=== PATIENT | female | born 1975 | race Caucasian/White ===

== ENCOUNTER 2018-08-20 02:39 | Emergency (ER) | payer BC ==
[~2018-08-20] VITALS: Ht 157.5 cm; Wt 45.4 kg
[2018-08-20 02:50] VITALS: BP 114/68
--- NOTE | 2018-08-20 02:52 | NUR ---
ED Nurse Note: Patient walked in to ER c/o abdominal discomphort, constipation. Per patient she tryed to use bathroom and she was not able to pass stool. AAO x4, VSS at this time, skin is dry, warm to touch.
[2018-08-20] MEDS ORDERED: FLEET ENEMA133 ML RECTAL (03:06)
--- NOTE | 2018-08-20 03:07 | Emergency Room Report ---
History of Present Illness General Chief Complaint: Constipation Source: Patient Present Illness HPI This is a 42-year-old female with a history of Sjogren and thyroid problem. She presents with chief complaint of constipation and fecal impaction. Onset tonight. Last bowel movement was to 3 days ago. She has an urge to go around 9 PM but unable to get it out. Painful she try to defecate. Not on any pain medication. Never had this problem before. Has not tried anything for it. Allergies: Coded Allergies: No Known Allergies (Unverified , 08/20/18) Patient History Past Medical History: see triage record, old chart reviewed Past Surgical History: other Pertinent Family History: none Social History: Denies: smoking Last Menstrual Period: 07/22/18 Now: No Immunizations: other Reviewed Nursing Documentation: PMH: Agreed; PSxH: Agreed Nursing Documentation-PMH Past Medical History: No History, Except For Review of Systems Eye: Denies: eye pain, blurred vision ENT: Denies: ear pain, nose congestion, throat swelling Respiratory: Denies: cough, shortness of breath Cardiovascular: Denies: chest pain, palpitations Gastrointestinal: Denies: abdominal pain, diarrhea, nausea, vomiting Musculoskeletal: Denies: back pain, joint pain Skin: Denies: rash Neurological: Denies: headache, numbness Endocrine: Denies: increased thirst, increased urine Hematologic/Lymphatic: Denies: easy bruising All Other Systems: negative except mentioned in HPI Physical Exam Vital Signs Date Time Temp Pulse Resp B/P (MAP) Pulse Ox O2 Delivery O2 Flow Rate FiO2 08/20/18 02:40 97.9 92 16 114/68 (83) 97 Room Air vitals normal Sp02 EP Interpretation: reviewed, normal General Appearance: well appearing, no apparent distress, alert Head: normocephalic, atraumatic Eyes: bilateral eye PERRL, bilateral eye EOMI ENT: hearing grossly normal, normal pharynx Neck: full range of motion, supple, no meningismus Respiratory: chest non-tender, lungs clear, normal breath sounds Cardiovascular #1: regular rate, rhythm, no murmur Gastrointestinal: normal bowel sounds, non tender, no mass, no organomegaly, no bruit, non-distended Rectal: other - Large amount of hard stool. Musculoskeletal: back normal, gait/station normal, normal range of motion Neurologic: alert, oriented x3 Psychiatric: mood/affect normal Skin: warm/dry Procedures Additional Procedure Procedure Narrative Procedure: Fecal disimpaction Indication: Fecal impaction Description: I manually disimpact several hard stool. Also breakup stool in the anal vault. Afterward I gave her an enema. She tolerated procedure without a problem. Medical Decision Making Diagnostic Impression: Primary Impression: Constipation Qualified Codes: K59.00 - Constipation, unspecified ER Course Patient presents with constipation and obstipation. No evidence of any obstruction. Good results with disimpaction and Fleet enemas. We'll discharge home. Last Vital Signs Date Time Temp Pulse Resp B/P (MAP) Pulse Ox O2 Delivery O2 Flow Rate FiO2 08/20/18 02:50 97.9 16 114/68 97 Room Air 08/20/18 02:40 92 Status: improved Disposition: HOME, SELF-CARE Condition: Stable Scripts Na Phos,M-B/Na Phos,Di-Ba* (FLEET ENEMA*) 133 Ml Enema 133 ML RECTAL DAILY, #266 ML 0 Refills Prov: Jovan Larson MD 08/20/18 Patient Instructions: Constipation, Adult Additional Instructions: Increase fluid and fiber. Follow-up your doctor in 7 days. May use over-the- counter enemas. Return if worse. Jovan Larson MD Aug 20, 2018 03:07
[2018-08-20 03:10] VITALS: BP 114/68
--- NOTE | 2018-08-20 03:11 | NUR ---
ED Nurse Note: Pt cleared by health care Provider for discharge. DC instructions/prescription was given and explained to pt and verbalized understanding of teachings. All medical deviecs such as ID band removed. Pt is AAO x4, ambulatory and left with all personal belongings.
[2018-08-20] MEDS ORDERED: Fleet's Enema 133ml RECTAL ONE (03:15)
== END 2018-08-20 03:10 | disposition home or self-care (01) ==
LOC: EMR 03:02
DX: K56.41 Fecal impaction (principal); M35.00 Sjogren syndrome, unspecified
CPT/HCPCS: 99283